=== PATIENT | female | born 1985 | race African-American/Black ===

== ENCOUNTER 2019-06-29 14:15 | Emergency (ER) | payer OTHER ==
[~2019-06-29] VITALS: Ht 167.6 cm; Wt 64.0 kg
[2019-06-29] MEDS ORDERED: ONDANSETRON HCL 4MG/2ML INJ IV STA (15:41)
[2019-06-29] MEDS ORDERED: KETOROLAC 30MG/ML VIAL IV STA (15:41)
[2019-06-29] MEDS ORDERED: SODIUM CHLORIDE 0.9% 1,000 ML IV ONE (15:41)
[2019-06-29 17:14] LABS: BASOPHILS % 0.3 % (0.0-2.0); EOSINOPHILS % 0.6 % (0.0-5.0); HEMATOCRIT. 41.6 % (36.0-48.0); HEMOGLOBIN. 13.3 g/dL (12.0-16.0); LYMPHOCYTES % 13.7 % (20.0-50.0); MEAN CORPUSCULAR HEMOGLOBIN 24.6 pg (28.0-32.0); MEAN CORPUSCULAR VOLUME 76.9 fL (81.0-99.0); MEAN PLATELET VOLUME 6.8 fl (7.4-10.4); MONOCYTES % 6.9 % (2.0-8.0); NEUTROPHILS % 78.5 % (40.0-76.0); PLATELET 287 x1000/uL (130-400); RED BLOOD CELL COUNT 5.41 mill/uL (4.2-5.4); RED CELL DISTRIBUTION WIDTH 14.4 % (11.6-14.6)
[2019-06-29 17:17] LABS: CHLORIDE 104 mEq/L (98-107)
[2019-06-29] MEDS ORDERED: MORPHINE SULFATE 10 MG/ML CPJ IM ONE (18:30)
[2019-06-29 20:02] LABS: HCG SCREEN NEGATIVE
[2019-06-29] MEDS ORDERED: HYDROCODONE/ACETAMINOPHEN 5/325MG TABLET PO ONE (22:15)
[2019-06-29] MEDS ORDERED: METOCLOPRAMIDE HCL 10MG/2ML VIAL IV ONE (23:00)
[2019-06-29 23:45] VITALS: BP 128/83
[2019-06-29] MEDS ORDERED: METOCLOPRAMIDE HCL 10MG TABLET PO ONE (23:45)
== END 2019-06-30 00:25 | disposition home or self-care (01) ==
LOC: ER 14:15
DX: R51 Headache (principal); R10.84 Generalized abdominal pain; Z83.3 Family history of diabetes mellitus; Z72.89 Other problems related to lifestyle
CPT/HCPCS: 36415; 70450; 74176; 80053; 81025; 84703; 85025; 96372; 96374; 99284; J1885; J2270; J7030; J8597; J2405